=== PATIENT | male | born 1995 | race African-American/Black ===

== ENCOUNTER 2016-08-29 17:28 | Emergency (ER) | payer OTHER ==
[~2016-08-29] VITALS: Ht 175.3 cm; Wt 59.9 kg
[~2016-08-29 17:28] MED LIST: ATIVAN0.5 MG PO; POTASSIUM CHLO20 ME1 PO; VALACYCLOVIR500 MG PO; VALTREX1000 MG PO
[2016-08-29 18:36] VITALS: BP 133/91
== END 2016-08-29 18:36 | disposition home or self-care (01) ==
LOC: EME 17:28
PROC: 0HQGXZZ Repair Left Hand Skin, External Approach (ICD-10-PCS; principal; 2016-08-29)
DX: S61.412A Laceration without foreign body of left hand, initial encounter (principal); X78.9XXA Intentional self-harm by unspecified sharp object, initial encounter; F17.200 Nicotine dependence, unspecified, uncomplicated
CPT/HCPCS: 99281; 99283